=== PATIENT | female | born 1975 | race African-American/Black ===

== ENCOUNTER 2019-02-07 09:51 | Inpatient (IN) | payer SELFPAY ==
[~2019-02-07] VITALS: Ht 170.2 cm; Wt 61.2 kg
[2019-02-07] MEDS ORDERED: KETOROLAC 30MG/ML VIAL IV STA (10:52)
[2019-02-07] MEDS ORDERED: SODIUM CHLORIDE 0.9% 1,000 ML IV ONE (10:52)
[2019-02-07 11:39] LABS: CLARITY URINE CLOUDY (CLEAR); COLOR URINE YELLOW (YELLOW); KETONES URINE TRACE (NEGATIVE); LEUKOCYTE ESTERASE URINE NEGATIVE (NEGATIVE); NITRITE URINE NEGATIVE (NEGATIVE); OCCULT BLOOD URINE NEGATIVE (NEGATIVE); PH URINE 7.5 (4.5-8.0); PROTEIN URINE 1+ (NEGATIVE); SPECIFIC GRAVITY URINE 1.026 (1.005-1.030)
[2019-02-07 11:55] LABS: BASOPHILS % 0.1 % (0.0-2.0); EOSINOPHILS % 1.4 % (0.0-5.0); HEMATOCRIT. 38.5 % (36.0-48.0); HEMOGLOBIN. 13.1 g/dL (12.0-16.0); LYMPHOCYTES % 10.3 % (20.0-50.0); MEAN CORPUSCULAR HEMOGLOBIN 30.9 pg (28.0-32.0); MEAN CORPUSCULAR VOLUME 91.1 fL (81.0-99.0); MEAN PLATELET VOLUME 7.9 fl (7.4-10.4); MONOCYTES % 8.2 % (2.0-8.0); PLATELET 340 x1000/uL (130-400); RED BLOOD CELL COUNT 4.23 mill/uL (4.2-5.4); RED CELL DISTRIBUTION WIDTH 13.3 % (11.6-14.6)
[2019-02-07 12:02] LABS: CHLORIDE 99 mEq/L (98-107)
[2019-02-07 12:04] LABS: PROTHROMBIN TIME 10.7 sec (9.6-11.0)
[2019-02-07 12:14] LABS: HCG SCREEN NEGATIVE
[2019-02-07] MEDS ORDERED: HYDROCODONE/ACETAMINOPHEN 5/325MG TABLET PO ONE (15:45)
[2019-02-07 15:54] LABS: MONOTEST NEGATIVE (NEGATIVE)
[2019-02-07 16:09] LABS: CREATINE KINASE 34 IU/L (26-192)
[2019-02-07] MEDS ORDERED: DEXAMETHASONE 10 MG/ML VIAL IV ONE (16:15)
[2019-02-07] MEDS ORDERED: SODIUM CHLORIDE 0.9% 1000ML BAG (SEPSIS BOLUS) IV ONE (17:30)
[2019-02-07 21:45] VITALS: BP 132/78
[2019-02-07] MEDS ORDERED: HYDROCODONE/ACETAMINOPHEN 5/325MG TABLET PO PRN (23:15)
[2019-02-07] MEDS ORDERED: ACETAMINOPHEN 650MG/20.3ML UDC PO PRN (23:15)
[2019-02-08] VITALS: BP 119/82
[2019-02-08] MEDS ORDERED: AZITHROMYCIN 500 MG in DEXT 5% WATER 250 ML IV SCH (01:00)
[2019-02-08 04:00] VITALS: BP 123/78
[2019-02-08 08:00] VITALS: BP 114/69
[2019-02-08] MEDS ORDERED: IPRATROPIUM/ALBUTEROL 0.5-3(2.5)MG/3ML NEB HHN PRN (08:00)
[2019-02-08] MEDS: INFLUENZA VIRUS VACCINE(AFLURIA) 0.5ML SYR IM ONE ×2 (10:00→14:44)
[2019-02-08 12:00] VITALS: BP 115/77
[2019-02-08] MEDS ORDERED: FAMOTIDINE 20MG/2ML VIAL IV NR (14:15)
[2019-02-08 14:25] VITALS: BP 115/77
== END 2019-02-08 15:06 | disposition home or self-care (01) | DRG 113 ==
LOC: ER 09:51 → EDBEDREQTM 17:47 → EDBEDREQSVC 17:47 → ENRESERV 20:00 → 6EST 21:58
PROVIDERS: ADMIT Internal Medicine; ATTEND Internal Medicine
DX: J11.1 Influenza due to unidentified influenza virus with other respiratory manifestations (principal); E44.0 Moderate protein-calorie malnutrition; E87.1 Hypo-osmolality and hyponatremia; Z68.21 Body mass index [BMI] 21.0-21.9, adult
CPT/HCPCS: 36415; 71045; 81003; 82550; 83605; 84484; 84703; 86308; 87804; 90686; 93005; 99285; J0456; J1100; J1885; J7030; J7060